=== PATIENT | female | born 1970 | race African-American/Black ===

== ENCOUNTER 2016-08-26 17:18 | Observation (INO) | payer BC ==
[~2016-08-26] VITALS: Ht 165.1 cm; Wt 69.0 kg
[~2016-08-26 17:18] MED LIST: ASPIR-TRIN325 M1 PO; ATENOLOL50 MG PO; FEOSOL325 MG PO; HYDROCHLOROTHIA25 MG PO; LISINOPRIL10 MG PO; PRILOSEC20 MG PO
[2016-08-26 18:13] LABS: MCH 26.8 PG (29.0-34.0); MCHC 31.1 G/DL (30.0-36.0); MCV 86.4 FL (83-99); PLATELET COUNT 255 K/uL (156-360); RBC DIS.WIDTH-CV 15.8 % (11.8-14.6); RBC DIS.WIDTH-SD 49.9 % (39-53); WHITE BLOOD COUNT 4.2 K/uL (4.1-10.2)
[2016-08-26 18:22] LABS: CHLORIDE 104 mEq/L (99-109); POTASSIUM 3.4 mEq/L (3.7-5.4); SODIUM 139 mEq/L (136-147)
[2016-08-26 18:23] LABS: GLUCOSE 115 mg/dL (70-99)
[2016-08-26 18:25] LABS: ANION GAP 11 MEQ/L (2-14)
[2016-08-26 18:27] LABS: GFR ESTIMATE (CALCULATED) > 59 mL/min/
[2016-08-26 18:28] LABS: UREA NITROGEN (BUN) 9 mg/dL (9-23)
[2016-08-26 18:33] LABS: TROP-I INTERPRETATION NEGATIVE; TROPONIN-I < 0.01 ng/mL (0.0-0.30)
[2016-08-26] MEDS ORDERED: LO-DOSE ASPIRIN81 M1 PO (20:28)
[2016-08-26] MEDS ORDERED: HYZAAR 50-121 TABLET PO (20:28)
[2016-08-26] MEDS ORDERED: METOPROLOL SUCC50 MG PO (20:28)
[2016-08-26] MEDS ORDERED: IRON325 M1 PO (20:29)
[2016-08-26] MEDS ORDERED: FLONASE16 G1 BOTH NARES (20:29)
[2016-08-26 22:14] VITALS: BP 135/67
[2016-08-27 03:46] VITALS: BP 123/59
[2016-08-27 06:46] VITALS: BP 124/64
[2016-08-27 07:21] LABS: HDL CHOLESTEROL 74 MG/DL (Desirable>=50); LDL CHOLESTEROL 96 mg/dL (Desirable<100); NON-HDL CHOLESTEROL 107 mg/dL (Desirable<160); TOTAL CHOLESTEROL 181 mg/dL (Desirable<200); TRIGLYCERIDES 57 MG/DL (Normal: <150)
[2016-08-27 07:27] LABS: TROP-I INTERPRETATION NEGATIVE; TROPONIN-I < 0.01 ng/mL (0.0-0.30)
== END 2016-08-27 09:42 | disposition home or self-care (01) ==
LOC: EME 17:18 → EDOF 20:12 → 5WEST 21:51
PROVIDERS: Physician Assistant Medical
DX: R07.89 Other chest pain (principal); I10 Essential (primary) hypertension; K21.9 Gastro-esophageal reflux disease without esophagitis; R19.7 Diarrhea, unspecified
CPT/HCPCS: 71020; 80048; 80061; 84484; 85027; 93005; 99281; 99285; G0378

== ENCOUNTER 2017-07-06 09:32 | Emergency (ER) | payer BC ==
[~2017-07-06] VITALS: Ht 165.1 cm; Wt 74.6 kg
[~2017-07-06 09:32] MED LIST changes: +FLONASE16 G1 BOTH NARES; +HYZAAR 50-121 TABLET PO; +IRON325 M1 PO; +LO-DOSE ASPIRIN81 M1 PO; +METOPROLOL SUCC50 MG PO; +ONE DAILY1 EAC3 PO
[2017-07-06 09:35] VITALS: BP 158/92
== END 2017-07-06 11:39 | disposition home or self-care (01) ==
LOC: EME 09:32
DX: M25.532 Pain in left wrist (principal); I10 Essential (primary) hypertension
CPT/HCPCS: 73110; 99281; 99283